=== PATIENT | female | born 1945 | race Caucasian/White ===

== ENCOUNTER 2017-04-07 07:20 | Day surgery (SDC) | payer OTHER ==
[~2017-04-07] VITALS: Ht 160 cm; Wt 106.6 kg
[~2017-04-07 07:20] MED LIST: CEFAZOLIN SOD 1 GM in D5W 50 ML IV ONE
[2017-04-07] MEDS ORDERED: POTA-118 PO (08:16)
[2017-04-07] MEDS ORDERED: METO50TA7 PO (08:16)
[2017-04-07] MEDS ORDERED: FURO-149 PO (08:16)
[2017-04-07] MEDS ORDERED: DEXAMETHASONE SOD PHOSPHATE 4 MG/ML VIAL IVP ONE (10:07)
[2017-04-07] MEDS ORDERED: MEPERIDINE HCL/PF 100 MG/ML AMP IM ONE (10:07)
[2017-04-07] MEDS ORDERED: GLYCOPYRROLATE 0.2 MG/ML VIAL IJ ONE (10:07)
[2017-04-07] MEDS ORDERED: SEVOFLURANE 15 MIN GAS INH ONE (10:07)
[2017-04-07] MEDS ORDERED: LR 1,000 ML IV.SOLN IV ONE (10:07)
[2017-04-07] MEDS ORDERED: KETOROLAC TROMETHAMINE 30 MG VIAL IVP ONE (10:07)
[2017-04-07] MEDS ORDERED: ISOSULFAN BLUE 5 ML VIAL (LYMPHAZURIN) INJ ONE (10:07)
[2017-04-07] MEDS ORDERED: MIDAZOLAM HCL 5 MG/5 ML VIAL IVP ONE (10:07)
[2017-04-07] MEDS ORDERED: PROPOFOL 200MG/ 20ML VIAL (DIPRIVAN) IV ONE (10:07)
[2017-04-07] MEDS ORDERED: NS 1000 ML BAG IV ONE (10:07)
[2017-04-07] MEDS ORDERED: METOCLOPRAMIDE HCL 10 MG/2 ML VIAL IVP ONE (10:07)
[2017-04-07] MEDS ORDERED: fentaNYL CITRATE/PF 100 MCG/2 ML AMP IVP ONE (10:07)
[2017-04-07] MEDS ORDERED: LR 1,000 ML IV ONE (11:02)
[2017-04-07] MEDS ORDERED: ONDANSETRON HCL 4 MG/2 ML VIAL IVP PRN ×3 (11:15→13:15)
[2017-04-07] MEDS ORDERED: fentaNYL CITRATE/PF 100 MCG/2 ML AMP IVP PRN (11:15)
[2017-04-07] MEDS ORDERED: DIPHENHYDRAMINE INJ 50 MG/ML VIAL IVP PRN (11:15)
[2017-04-07] MEDS ORDERED: ePHEDrine sulfate 50 MG/ML VIAL IVP PRN (11:15)
[2017-04-07] MEDS ORDERED: NALOXONE HCL 0.4 MG/ML AMP (NARCAN) IVP PRN (11:15)
[2017-04-07] MEDS ORDERED: NALBUPHINE HCL 10 MG/ML AMP IVP PRN (11:15)
[2017-04-07] MEDS ORDERED: HYDROmorphone 1 MG INJ. 1 MG/ML AMPUL IVP PRN (13:15)
[2017-04-07] MEDS ORDERED: ACETAMINOPHEN 325 MG TABLET PO PRN (13:15)
[2017-04-07] MEDS ORDERED: HYDROcodone/ACETAMIN 5-325 MG TAB (NORCO/ VICODIN) PO PRN ×2 (13:15)
[2017-04-07] MEDS: fentaNYL CITRATE/PF 100 MCG/2 ML AMP ONE ×2 (13:20→13:39)
[2017-04-07 14:30] VITALS: BP_SYST 133
[2017-04-07 15:46] VITALS: BP_SYST 128
[2017-04-07] MEDS: CEFAZOLIN 1 GM IVPB PREMIX 50 ML IV SCH (16:55)
[2017-04-07] MEDS: D5/0.45 NS 1,000 ML IV SCH ×2 (16:56→23:02)
[2017-04-07 17:16] VITALS: BP_SYST 128
[2017-04-07 20:15] VITALS: BP_SYST 130
[2017-04-07] MEDS: FAMOTIDINE PF 20 MG/2 ML VIAL IVP SCH (21:06)
[2017-04-08 00:29] VITALS: BP_SYST 133
[2017-04-08] MEDS: CEFAZOLIN 1 GM IVPB PREMIX 50 ML IV SCH (02:45)
[2017-04-08 04:12] VITALS: BP_SYST 132
[2017-04-08 08:00] VITALS: BP_SYST 138
[2017-04-08] MEDS: FAMOTIDINE PF 20 MG/2 ML VIAL IVP SCH (09:00)
[2017-04-08] MEDS: D5/0.45 NS 1,000 ML IV SCH (09:02)
[2017-04-08 09:05] VITALS: BP_SYST 138
== END 2017-04-08 09:50 | disposition home or self-care (01) ==
LOC: SDS 07:20 → SMU 07:20 → EDSTATUS 11:35 → SMU 13:06 → SDS 04-08 09:50
PROVIDERS: ATTEND Colon & Rectal Surgery
DX: C50.911 Malignant neoplasm of unspecified site of right female breast (principal); I12.9 Hypertensive chronic kidney disease with stage 1 through stage 4 chronic kidney disease, or unspecified chronic kidney disease; N18.3 Chronic kidney disease, stage 3 (moderate); K80.20 Calculus of gallbladder without cholecystitis without obstruction; E66.9 Obesity, unspecified; E46 Unspecified protein-calorie malnutrition; N28.1 Cyst of kidney, acquired; H25.093 Other age-related incipient cataract, bilateral; E04.1 Nontoxic single thyroid nodule; Z98.890 Other specified postprocedural states; Z80.1 Family history of malignant neoplasm of trachea, bronchus and lung; Z80.3 Family history of malignant neoplasm of breast; Z68.41 Body mass index [BMI] 40.0-44.9, adult
CPT/HCPCS: 78195; 87081; 88307; 88342; A9541; J0690; J1100; J1885; J2175; J2250; J2704; J2765; J3010; J3490; J7030; J7060; J7120; Q9968

== ENCOUNTER 2020-08-29 12:44 | Inpatient (IN) | payer BC, SELFPAY ==
[~2020-08-29] VITALS: Ht 7.6 cm; Wt 108.9 kg
[~2020-08-29 12:44] MED LIST changes: +ALBMDI INH; -CEFAZOLIN SOD 1 GM in D5W 50 ML IV ONE; +FEM2.5 PO; +FURO-149 PO; +LEVO500T20 PO; +METO50TA7 PO; +METR500T PO; +POTA10TA15 PO
[2020-08-29 12:54] VITALS: BP_SYST 155
[2020-08-29 13:38] LABS: BASOPHILS # (AUTO) 0.1 K/uL (0.0-0.2); BASOPHILS % (AUTO) 0.6 % (0.0-2.0); EOSINOPHILS % (AUTO) 0.4 % (0.0-4.0); HEMATOCRIT 45.7 % (36-48); HEMOGLOBIN 15.1 g/dL (12.0-16.0); LYMPHOCYTES # (AUTO) 1.2 K/uL (1.0-5.5); MEAN CORPUSCULAR HEMOGLOBIN 29 pg (27-31); MEAN CORPUSCULAR HGB CONC 33 % (32-36); MEAN CORPUSCULAR VOLUME 88 fL (79.0-98.0); MONOCYTES # (AUTO) 0.6 K/uL (0.0-1.0); NEUTROPHILS # (AUTO) 10.4 K/uL (1.8-7.7); PLATELET COUNT (AUTO) 300 K/uL (130-430); RED BLOOD CELL COUNT(AUTO) 5.21 MIL/uL (4.2-6.2); RED CELL DISTRIBUTION WIDTH 15.9 % (9.0-15.0); WHITE BLOOD COUNT (AUTO) 12.4 K/uL (4.8-10.8)
[2020-08-29 13:44] LABS: ANION GAP 9 (5-15); CALCIUM 8.9 mg/dL (8.4-11.0); CHLORIDE 104 mmol/L (98-107); CREATININE 1.23 mg/dL (0.55-1.30); GLUCOSE 124 mg/dL (70-99); POTASSIUM 4.1 mmol/L (3.5-5.1); SODIUM SERUM 140 mmol/L (136-145); UREA NITROGEN, BLOOD 22 mg/dL (8-21)
[2020-08-29 13:50] LABS: ALANINE AMINOTRANSFERASE 88 U/L (12-78); ALBUMIN 3.1 g/dL (3.4-4.8); ASPARTATE AMINOTRANSFERASE 97 U/L (10-37)
[2020-08-29 14:07] LABS: LIPASE 8567 U/L (73-393)
[2020-08-29 14:08] LABS: BILIRUBIN,URINE 2+ (NEGATIVE); BLOOD, URINE NEGATIVE (NEGATIVE); CLARITY/URINE CLEAR (CLEAR); GLUCOSE,URINE NEGATIVE (NEGATIVE); KETONES,URINE NEGATIVE (NEGATIVE); LEUKOCYTE ESTERASE ,URINE TRACE (NEGATIVE); NITRITE, URINE NEGATIVE (NEGATIVE); PH,URINE 5.5 (5.0-8.0); PROTEIN URINE 1+ (NEGATIVE)
[2020-08-29 14:10] LABS: COLOR,URINE AMBER (YELLOW)
[2020-08-29 14:30] LABS: BACTERIA,URINE RARE /HPF (None Seen); HYALINE CASTS, URINE 0-10 /LPF (None Seen); RBC,URINE 0-3 /HPF (0-3)
[2020-08-29] MEDS ORDERED: NITR-85 PO (14:38)
[2020-08-29] MEDS ORDERED: ACETAMINOPHEN 325 MG TABLET PO PRN (15:00)
[2020-08-29] MEDS ORDERED: NACL 0.9% 1,000 ML IV ONE (15:00)
[2020-08-29] MEDS ORDERED: MORPHINE 2 MG/ML INJ. SYRINGE IVP PRN (15:00)
[2020-08-29] MEDS ORDERED: ONDANSETRON HCL 4 MG/2 ML VIAL IVP PRN ×2 (15:00)
[2020-08-29] MEDS ORDERED: MORPHINE 4 MG/ML INJ. SYRINGE IVP PRN (15:00)
[2020-08-29] MEDS ORDERED: METOCLOPRAMIDE HCL 10 MG/2 ML VIAL IVP PRN ×2 (15:00)
[2020-08-29 17:06] VITALS: BP_SYST 164
[2020-08-29] MEDS: D5NS 1,000 ML IV SCH ×2 (17:51→22:20)
[2020-08-29] MEDS ORDERED: METOPROLOL SUCCINATE 50 MG TAB.SR.24H (TOPROL XL) PO ONE (18:00)
[2020-08-29] MEDS ORDERED: FLU VACC QS2020-21(65UP)/PF 0.7 ML/SYRINGE I.M. PRN (19:45)
[2020-08-29 20:00] VITALS: BP_SYST 129
[2020-08-30] VITALS: BP_SYST 138
[2020-08-30] MEDS: D5NS 1,000 ML IV SCH ×2 (06:29→21:25)
[2020-08-30 07:36] LABS: BASOPHILS % (AUTO) 0.5 % (0.0-2.0); EOSINOPHILS # (AUTO) 0.2 K/uL (0.0-0.4); EOSINOPHILS % (AUTO) 1.7 % (0.0-4.0); HEMATOCRIT 38.4 % (36-48); HEMOGLOBIN 12.6 g/dL (12.0-16.0); LYMPHOCYTES % (AUTO) 20.6 % (20.5-51.5); MEAN CORPUSCULAR HEMOGLOBIN 29 pg (27-31); MEAN CORPUSCULAR HGB CONC 33 % (32-36); MEAN CORPUSCULAR VOLUME 89 fL (79.0-98.0); MONOCYTES % (AUTO) 10.3 % (1.7-9.3); NEUTROPHILS # (AUTO) 6.6 K/uL (1.8-7.7); NEUTROPHILS % (AUTO) 66.9 % (40.0-70.0); PLATELET COUNT (AUTO) 232 K/uL (130-430); RED BLOOD CELL COUNT(AUTO) 4.33 MIL/uL (4.2-6.2); RED CELL DISTRIBUTION WIDTH 15.5 % (9.0-15.0); WHITE BLOOD COUNT (AUTO) 9.9 K/uL (4.8-10.8)
[2020-08-30 08:00] VITALS: BP_SYST 136
[2020-08-30 08:02] LABS: ALANINE AMINOTRANSFERASE 64 U/L (12-78); ALBUMIN 2.1 g/dL (3.4-4.8); ANION GAP 7 (5-15); ASPARTATE AMINOTRANSFERASE 63 U/L (10-37); CALCIUM 7.5 mg/dL (8.4-11.0); CHLORIDE 108 mmol/L (98-107); CREATININE 1.13 mg/dL (0.55-1.30); GLUCOSE 238 mg/dL (70-99); LIPASE 111 U/L (73-393); POTASSIUM 3.5 mmol/L (3.5-5.1); SODIUM SERUM 140 mmol/L (136-145); TOTAL BILIRUBIN 5.2 mg/dL (0.0-1.0); UREA NITROGEN, BLOOD 16 mg/dL (8-21)
[2020-08-30 12:38] VITALS: BP_SYST 146
[2020-08-30 16:46] VITALS: BP_SYST 162
[2020-08-30] MEDS: METOPROLOL SUCCINATE 50 MG TAB.SR.24H (TOPROL XL) PO SCH (17:00)
[2020-08-30 18:24] VITALS: BP_SYST 136
[2020-08-30 20:00] VITALS: BP_SYST 133
[2020-08-31] VITALS: BP_SYST 110; BP_SYST 122
[2020-08-31] MEDS: D5NS 1,000 ML IV SCH ×3 (04:15→22:54)
[2020-08-31 06:51] LABS: BASOPHILS # (AUTO) 0.2 K/uL (0.0-0.2); BASOPHILS % (AUTO) 2.4 % (0.0-2.0); EOSINOPHILS # (AUTO) 0.4 K/uL (0.0-0.4); EOSINOPHILS % (AUTO) 4.5 % (0.0-4.0); HEMATOCRIT 38.7 % (36-48); HEMOGLOBIN 12.6 g/dL (12.0-16.0); LYMPHOCYTES # (AUTO) 1.5 K/uL (1.0-5.5); LYMPHOCYTES % (AUTO) 18.3 % (20.5-51.5); MEAN CORPUSCULAR HEMOGLOBIN 29 pg (27-31); MEAN CORPUSCULAR HGB CONC 33 % (32-36); MEAN CORPUSCULAR VOLUME 90 fL (79.0-98.0); MONOCYTES # (AUTO) 0.6 K/uL (0.0-1.0); MONOCYTES % (AUTO) 7.7 % (1.7-9.3); NEUTROPHILS # (AUTO) 5.7 K/uL (1.8-7.7); NEUTROPHILS % (AUTO) 67.1 % (40.0-70.0); PLATELET COUNT (AUTO) 224 K/uL (130-430); RED BLOOD CELL COUNT(AUTO) 4.29 MIL/uL (4.2-6.2); RED CELL DISTRIBUTION WIDTH 16.1 % (9.0-15.0); WHITE BLOOD COUNT (AUTO) 8.4 K/uL (4.8-10.8)
[2020-08-31 07:02] LABS: ALANINE AMINOTRANSFERASE 55 U/L (12-78); ALBUMIN 2.3 g/dL (3.4-4.8); ANION GAP 8 (5-15); ASPARTATE AMINOTRANSFERASE 55 U/L (10-37); CALCIUM 8.2 mg/dL (8.4-11.0); CHLORIDE 108 mmol/L (98-107); CREATININE 1.08 mg/dL (0.55-1.30); GLUCOSE 207 mg/dL (70-99); LIPASE 215 U/L (73-393); POTASSIUM 3.8 mmol/L (3.5-5.1); SODIUM SERUM 141 mmol/L (136-145); TOTAL BILIRUBIN 6.1 mg/dL (0.0-1.0); UREA NITROGEN, BLOOD 15 mg/dL (8-21)
[2020-08-31 07:10] LABS: INR 1.1 (0.8-1.2); PROTHROMBIN TIME 11.6 SECS (9.5-12.5)
[2020-08-31 08:15] VITALS: BP_SYST 185
[2020-08-31] MEDS: METOPROLOL SUCCINATE 50 MG TAB.SR.24H (TOPROL XL) PO SCH (09:39)
[2020-08-31] MEDS ORDERED: HEMABATE 250MCG/ML VIAL AMP IM ONE (09:49)
[2020-08-31] MEDS ORDERED: LR 1,000 ML IV SCH (10:33)
[2020-08-31] MEDS ORDERED: KETOROLAC TROMETHAMINE 30 MG VIAL IVP PRN (10:45)
[2020-08-31] MEDS ORDERED: hydrALAZINE HCL 20 MG/ML VIAL IVP PRN (10:45)
[2020-08-31] MEDS ORDERED: MEPERIDINE HCL/PF 25 MG/ML DISP.SYRIN IVP PRN (10:45)
[2020-08-31] MEDS ORDERED: HYDROmorphone 1 MG INJ. 1 MG/ML AMPUL IVP PRN (10:45)
[2020-08-31] MEDS ORDERED: ONDANSETRON HCL 4 MG/2 ML VIAL IVP PRN (10:45)
[2020-08-31 12:08] VITALS: BP_SYST 168
[2020-08-31 17:34] VITALS: BP_SYST 172
[2020-08-31 20:10] VITALS: BP_SYST 159
[2020-09-01 06:00] VITALS: BP_SYST 166
[2020-09-01] MEDS: D5NS 1,000 ML IV SCH (07:06)
[2020-09-01 07:26] LABS: BASOPHILS % (AUTO) 0.3 % (0.0-2.0); HEMATOCRIT 40.2 % (36-48); HEMOGLOBIN 13.3 g/dL (12.0-16.0); LYMPHOCYTES # (AUTO) 1.4 K/uL (1.0-5.5); LYMPHOCYTES % (AUTO) 16.2 % (20.5-51.5); MEAN CORPUSCULAR HEMOGLOBIN 29 pg (27-31); MEAN CORPUSCULAR HGB CONC 33 % (32-36); MEAN CORPUSCULAR VOLUME 89 fL (79.0-98.0); MONOCYTES # (AUTO) 0.5 K/uL (0.0-1.0); MONOCYTES % (AUTO) 5.9 % (1.7-9.3); NEUTROPHILS # (AUTO) 6.8 K/uL (1.8-7.7); NEUTROPHILS % (AUTO) 77.6 % (40.0-70.0); PLATELET COUNT (AUTO) 253 K/uL (130-430); RED BLOOD CELL COUNT(AUTO) 4.54 MIL/uL (4.2-6.2); RED CELL DISTRIBUTION WIDTH 15.8 % (9.0-15.0); WHITE BLOOD COUNT (AUTO) 8.7 K/uL (4.8-10.8)
[2020-09-01 07:47] LABS: ALANINE AMINOTRANSFERASE 58 U/L (12-78); ALBUMIN 2.4 g/dL (3.4-4.8); ANION GAP 9 (5-15); ASPARTATE AMINOTRANSFERASE 55 U/L (10-37); CALCIUM 8.7 mg/dL (8.4-11.0); CHLORIDE 109 mmol/L (98-107); CREATININE 1.07 mg/dL (0.55-1.30); GLUCOSE 122 mg/dL (70-99); LIPASE 78 U/L (73-393); POTASSIUM 3.9 mmol/L (3.5-5.1); SODIUM SERUM 143 mmol/L (136-145); TOTAL BILIRUBIN 3.8 mg/dL (0.0-1.0); UREA NITROGEN, BLOOD 17 mg/dL (8-21)
[2020-09-01 08:00] VITALS: BP_SYST 167
[2020-09-01] MEDS: METOPROLOL SUCCINATE 50 MG TAB.SR.24H (TOPROL XL) PO SCH (09:46)
[2020-09-01 12:15] VITALS: BP_SYST 153
[2020-09-01 13:51] VITALS: BP_SYST 167
== END 2020-09-01 14:40 | disposition home or self-care (01) | DRG 444 ==
LOC: SED 12:44 → SMU 14:46
PROVIDERS: ADMIT Internal Medicine Hospice and Palliative Medicine; ATTEND Internal Medicine Hospice and Palliative Medicine
PROC: 0FC98ZZ Extirpation of Matter from Common Bile Duct, Via Natural or Artificial Opening Endoscopic (ICD-10-PCS; principal; 2020-08-31 08:30)
DX: K80.50 Calculus of bile duct without cholangitis or cholecystitis without obstruction (principal); K85.10 Biliary acute pancreatitis without necrosis or infection; R17 Unspecified jaundice; Z68.45 Body mass index [BMI] 70 or greater, adult; I10 Essential (primary) hypertension; E66.01 Morbid (severe) obesity due to excess calories; C50.919 Malignant neoplasm of unspecified site of unspecified female breast; Z20.828 Contact with and (suspected) exposure to other viral communicable diseases; Z79.899 Other long term (current) drug therapy; Z90.49 Acquired absence of other specified parts of digestive tract; Z90.13 Acquired absence of bilateral breasts and nipples
CPT/HCPCS: 36415; 71045; 74181; 76000; 76700-TC; 80053; 81000-TC; 83690-TC; 84478-TC; 85025; 85610-TC; 85730-TC; 86886; 86900; 86901; 87081; 93005; 96360; 99285; J2270; J7042; Q9967